=== PATIENT | female | born 1985 | race Two or more races ===

== ENCOUNTER 2025-04-21 08:19 | Outpatient (AMB) | payer OTHER, SELFPAY ==
--- OUTSIDE RECORDS SUMMARY | 2025-04-21 08:28 | XMS_ITS | Clinical Summary ---
Author Organization Patient Business [facility] Address [address] [place] [address] Care Team Providers Care Waitress Name Role Phone Ezekiel Mckoy MD Primary Care Provider [phone] Allergies No known active allergies Medications levonorgestreL (MIRENA) 21 mcg/24hr (up to 8 yrs) 52 mg IUD by Intrauterine route. Active FA/mv,Ca,iron,m in/lycopene/lut (MULTIVITAL ORAL) Take 1 tablet by mouth 1 (one) time each day. Active levothyroxine (SYNTHROID, LEVOTHROID) 25 mcg tablet TAKE 2 TABLETS (50 MCG TOTAL) BY MOUTH 1 (ONE) TIME EACH DAY BEFORE BREAKFAST. 180 tablet 1 5 Active PARoxetine (PAXIL) 30 mg tablet Take 1 tablet (30 mg total) by mouth 1 (one) time each day in the morning. 90 tablet 1 5 Active methocarbamoL (ROBAXIN) 500 mg tabletIndicatio ns:Lumbar pain,Spasm of muscle of lower back Take 1 tablet (500 mg total) by mouth 4 (four) times a day if needed for muscle spasms. 40 tablet 5 04/30/20 25 Active Active Problems Problem Noted Date Diagnosed Date Gilbert's syndrome 10/24/2024 Subclinical hypothyroidism 06/18/2023 Vitamin D deficiency 06/18/2023 Psychophysiological insomnia 06/18/2023 Primary osteoarthritis of right knee 06/18/2023 Anxiety 03/18/2023 Marihuana smoker 10/06/2017 Overview (04/28/2024): UDS + 10/02 Resolved Problems Problem Noted Date Diagnosed Date Resolved Date Cholelithiasis affecting pre gnancy, antepartum 02/21/2018 10/24/2024 Overview (04/28/2024): Diagnosed 12/21/2017 in [facility] ER with RUQ US. No cholecystitis or duct obstruction. Mildly elevated transaminases of AST 119, ALT 69 after presenting with N/V RUQ pain at 25 weeks. Mild range BP x 1 that day. Normal Cr, Plt 202, Trace protein on dip Shoulder pain 03/10/2012 10/24/2024 Back pain 03/10/2012 10/24/2024 Encounters Date Type Department Care Team Description 03/01/2025 1:45 PM EDT Office Visit Walk-In Clinic - [address] [id number] Kye Corado NP Lumbar pain (Primary Dx); Spasm of muscle of lower back 02/14/2025 9:00 AM EDT Office Visit Gastroenterology - [address] [facility] [address] [address] [place] [address] Mena Guevara NP Transaminitis (Primary Dx); Fatty liver; Morbid obesity with BMI of 40.0-44.9, adult (CMS/HCC V24, CMS/HCC V28); Need for hepatitis A and B vaccination 01/20/2025 8:53 AM EDT - 01/20/2025 11:59 PM EDT Hospital Encounter [facility] [address] [place] [address] Subclinical hypothyroidism Discharge Disposition: Home or Self Care from Last 3 Months Immunizations Immunization Administration Dates Next Due Influenza Quadravalent, MDCK , 0.5ml, preservative free (Flucelvax) 6mo and older 03/18/2023,03/04/2018 Tdap Tetanus diptheria acell ular pertussis (Boostrix; Adacel) 7yo and older 01/04/2018,03/10/2012 Surgical History Surgery Date Site/Laterality Comments VAGINOSCOPY 2014 PROCEDURE: [place] COLPOSCOPY CERVIX VAG LOOP ELTRD BX CERVIX; COMMENT: [facility] WISDOM TOOTH EXTRACTION PROCEDURE: HISTORICAL WISDOM TEETH EXTRACTION; COMMENT: All four removed Medical History Medical History Date Comments Morbid obesity with BMI of 4 0.0-44.9, adult (CMS/HCC V24, CMS/HCC V28) DX:Morbid obesity wit h BMI of 40.0-44.9, adult (HCC) Subclinical hypothyroidism 06/18/2023 DX:Giraldo bclinical hypothyroidism Vitamin D deficiency 06/18/2023 DX:Vitamin D deficiency Cholelithiasis affecting pre gnancy, antepartum 02/21/2018 DX:Cholelithiasis affecting , antepartum; COMMENT: Diagnosed 12/21/2017 in [facility] ER with RUQ US. No cholecystitis or duct obstruction. Mildly elevated transaminases of AST 119, ALT 69 after presenting with N/V RUQ pain at 25 weeks. Mild range BP x 1 that day. Normal Cr, Plt 202, Trace protein on dip Anxiety 03/18/2023 DX:Anxiety Psychophysiological insomnia 06/18/2023 DX: Psychophysiological insomnia Elevated liver enzymes DX:Elevat ed liver enzymes Hyperlipidemia DX:Hyperlipidemi a Family History Medical History Relation Name Comments Asthma Father Heart attack Maternal Grandfather Hypertension Maternal Grandmother Other: IBS Maternal Grandmother Other: cervical polyp Mother Other: old age Paternal Grandfather No Known Problems Paternal Grandmother No Known Problems Son Chuy Breast cancer Neg Hx Colon cancer Neg Hx Ovarian cancer Neg Hx Pancreatic cancer Neg Hx Prostate cancer Neg Hx Uterine cancer Neg Hx Relation Name Status Comments Father Alive Maternal Grandfather Maternal Grandmother Alive scolios is Mother Alive Paternal Grandfather Paternal Grandmother Son Chuy Alive Social History Tobacco Use Types Packs/Day Years Used Date Smoking Tobacco: Never Passive Smoke Exposure: Never Smokeless Tobacco: Never Alcohol Use Standard Drinks/Week Comments Yes 0 (1 standard drink = 0.6 oz pur e alcohol) Housing Instability Answer Date Recorde d Are you worried that in the next 2 months you may not have stable housing? No 03/01/2025 Food Access & Nutrition Answer Date Rec orded Do you have access to a vari ety of food including fruits and vegetables? Yes 03/01/2025 Access to Healthcare Answer Date Record ed Within the last 3 months, namita scott many times did you visit the emergency department for your medical care? 0 03/01/2025 Health Literacy Answer Date Recorded How often do you need to hav e someone help you when you read instructions, pamphlets, or other written material from your doctor or pharmacy? Never 03/01/2025 Caregiver: How often do you need to have someone help you when you read instructions, pamphlets, or other written material from your doctor or pharmacy? Not on file 03/01/2025 Financial Risk Answer Date Recorded How hard is it for you to pa y for the very basics like food, housing, medical care, and air conditioning / heating? Not very hard 03/01/2025 Transportation Answer Date Recorded Has the lack of transportati on kept you from meetings, work, or from getting things needed for daily living? No Has the lack of transportati on kept you from medical appointments or from getting medications? No 03/01/2025 Social Isolation Answer Date Recorded How often do you feel lonely or isolated from th ose around you? Rarely 03/01/2025 Food Risk Answer Date Recorded Within the past 12 months we worried whether our food would run out before we got money to buy more. Never true 03/01/2025 Within the past 12 months th e food we bought just didn't last and we didn't have money to get more. Never true 03/01/2025 Dependent Care Answer Date Recorded Do you need help finding or paying for care for your loved ones. For example, children's book author or elderly care for an older adult? No 03/01/2025 Education Answer Date Recorded Do you think completing more education or training, like finishing a GED, going to college, or learning a trade, would be helpful for you? Patient declined 03/01/2025 Employment and Income Answer Date Recor ded During the last four weeks, have you been actively looking for work? No 03/01/2025 Living Situation Answer Date Recorded What is your living situation? Unrecognized valu e 03/01/2025 Comments Unknown Sex and Gender Information Value Date Recorded Sex Assigned at Not on file Legal Sex Female 10:31 AM EDT Gender Identity Not on file Sexual Orientation Not on file Obstetrics History Last Filed Vital Signs Vital Sign Reading Time Taken Comments Blood Pressure 108/64 03/01/2025 1:57 PM EDT Pulse 80 03/01/2025 1:57 PM EDT Temperature 36.8 C (98.2 F) 03/01/2025 1:57 PM EDT Respiratory Rate - - Oxygen Saturation 98% 03/01/2025 1:57 PM EDT Inhaled Oxygen Concentration - - Weight 126 kg (277 lb) 02/14/2025 8:59 AM EDT Height 168.9 cm (5' 6.5 ) 02/14/2025 8:59 AM EDT Body Mass Index 44.04 02/14/2025 8:59 AM EDT Plan of Treatment Upcoming Encounters Date Type Department Care Team (Late st Contact Info) Description 07/05/2025 1:40 PM EST Office Visit Gastroenterology - [address] [facility] [address] [place] [phone] Mena Guevara, GRETA [address] [facility] [address] [place] [address] Health Maintenance Due Date Last Done Comments Hepatitis B Vaccines (1 of 3 - 19+ 3-dose series) 2005 HPV Vaccines (1 - 3-dose SCD M series) 2013 Depression Screening 06/08/2024 COVID-19 Vaccine ( - 2024-2 6 season) 2025 02/12/2021, 01/21/2021, 10/21/2020 Influenza Vaccine (#1) 2025 , 03/04/2018 Cervical Cancer Screening: HPV 11/12/2025 11/12/2020 Social Influencers of Health Screening 03/01/2026 03/01/2025 DTaP,Tdap,and Td Vaccines (3 - Td or Tdap) 01/05/2028 01/04/2018, 03/10/2012 Cholesterol Screening (Lipid Panel) 11/10/2029 11/10/2024, 12/17/2023, 12/17/2023 RSV Immunization Adult Patients (1 - 1-dose 75+ series) 2061 HIV Screening Completed 10/02/2017 Hepatitis C Screening Completed 11/10/2024 HIB Vaccines Aged Out No longer eligi ble based on patient's age to complete this topic Hepatitis A Vaccines Aged Out No long er eligible based on patient's age to complete this topic IPV Vaccines Aged Out No longer eligi ble based on patient's age to complete this topic MMR Vaccines Aged Out No longer eligi ble based on patient's age to complete this topic Meningococcal ACWY Vaccine Aged Out N o longer eligible based on patient's age to complete this topic Meningococcal B Vaccine Aged Out No l onger eligible based on patient's age to complete this topic Pneumococcal Vaccine: Pediatrics (0 to 5 Years) and At-Risk Patients (6 to 49 Years) Aged Out No longer eligible b ased on patient's age to complete this topic RSV Immunization Patients Under 20 months Aged Out No longer eligible b ased on patient's age to complete this topic Varicella Vaccines Aged Out No longer eligible based on patient's age to complete this topic Procedures Procedure Name Priority Date/Time Associated Diagnosis Comments US HEAD NECK SOFT TISSUE Routine 01/20/2025 9:27 AM EDT Subclinical hypothyroidism HEPATITIS C ANTIBODY Routine 11/10/2024 9:37 AM EDT Elevated liver enzymes LIPID PANEL WITH REFLEX TO DIRECT LDL Routine 11/10/2024 9:37 AM EDT Screening for metabolic disorder HPV Routine 11/12/2020 HIV SCREENING Routine 10/02/2017 from Last 3 Months or Most Recently Relevant to Health Maintenance Results * US Head Neck Soft Tissue (01/20/2025 9:27 AM EDT) Anatomical Region Laterality Modality Head and Neck Ultrasound 01/24/2025 10:0 3 AM EDT Impressions 01/24/2025 10:09 AM EDT Heterogeneous gland. There are solid nodules in each lobe with some bright reflectors likely calcifications. The largest measures 1.3 cm. Recommend repeat ultrasound in 6 months. TI-RADS Assessment (updated September 2016) Composition: cystic or spongiform: 0 pt mixed cystic and solid: 1 pt solid or almost completely solid: 2 pts Echogenicity: anechoic: 0 pt hyperechoic or isoechoic: 1 pt hypoechoic: 2 pts very hypoechoic: 3 pt Shape: wider than tall: 0 pt taller than wide: 3 pts Margin: smooth: 0 pt ill-defined: 0 pt lobulated/irregular: 2 pts extra-thyroidal extension: 3 pts Echogenic foci none or large comet tail artifact: 0 pt macro-calcification: 1 pt peripheral/rim ca++: 2 pts punctate echogenic foci: 3 pts TR1: 0 pts; benign; no follow-up TR2: 2 pts; not suspicious; no FNA TR3: 3 pts; mildly suspicious; < or = 1.5 cm f/u; > or = 2.5 cm FNA TR4: 4-6 pts; moderately suspicious; < or = 1.0 cm follow-up; 1.5 cm FNA TR5: 7 or > pts; highly suspicious; .5-.9 cm f/u; 1.0 cm or > FNA -------- FINAL REPORT -------- Dictated By: Esdras Lee Dictated Date: 01/24/2025 10:03 ET Assigned Physician: Esdras Lee Reviewed and Electronically Signed By: Esdras Lee Signed Date: 01/24/2025 10:09 ET Workstation ID: [id number] Transcribed By: Self Edit Transcribed Date: 01/24/2025 10:03 ET Narrative 01/24/2025 10:09 AM EDT HISTORY: Hypothyroidism. Evaluate for nodule TECHNIQUE: Grayscale assessment of the thyroid was performed with a high frequency linear transducer. COMPARISON: None FINDINGS: The right lobe of the thyroid measures: 5.6 x 1.9 x 2.0 cm Previous measurement: No previous available Right lobe contour: The right lobe contour is smooth. Right lobe echogenicity: Heterogeneous Right lobe vascularity: Top normal. The left lobe of the thyroid measures: 5.2 x 1.3 x 1.8 cm Previous measurement: No previous available Left lobe contour: The left lobe contour is smooth. Left lobe echogenicity: Heterogeneous Left lobe vascularity: Top normal. Isthmus measures (AP): 0.3 cm Previous measurement: No previous available Isthmus contour: The isthmic contour is smooth. Isthmus echogenicity: Heterogeneous Isthmus vascularity: Top normal. Masses: RIGHT LOBE There is a circumscribed heterogeneous solid nodule in the lower pole of the right lobe. There are a few scattered bright reflectors. No suspicious posterior features. No evidence of extrathyroidal extension. 01/20/25-1.3 x 1.0 x 1.1 cm TR 4 LEFT LOBE Mid left lobe There is a heterogeneous hypoechoic solid mass with scattered bright reflectors. There is poor evaluation of the anatomy deep to the right reflectors. No evidence of extrathyroidal extension. 01/20/25-1.0 x 0.9 x 1.0 cm TR 5 Mid left lobe There is a circumscribed 0.6 cm echogenic solid nodule with no calcification or extrathyroidal extension. No abnormal color signal TR 3 OTHER: Extrathyroidal extension: None Regional lymph nodes: No enlarged lymph nodes demonstrated Procedure Note Esdras Lee MD - 01/24/2025 HISTORY: Hypothyroidism. Evaluate for nodule TECHNIQUE: Grayscale assessment of the thyroid was performed with a highfrequency linear transducer. COMPARISON: None FINDINGS: The right lobe of the thyroid measures: 5.6 x 1.9 x 2.0 cm Previous measurement: No previous available Right lobe contour: The right lobe contour is smooth. Right lobe echogenicity: Heterogeneous Right lobe vascularity: Top normal. The left lobe of the thyroid measures: 5.2 x 1.3 x 1.8 cm Previous measurement: No previous available Left lobe contour: The left lobe contour is smooth. Left lobe echogenicity: Heterogeneous Left lobe vascularity: Top normal. Isthmus measures (AP): 0.3 cm Previous measurement: No previous available Isthmus contour: The isthmic contour is smooth. Isthmus echogenicity: Heterogeneous Isthmus vascularity: Top normal. Masses: RIGHT LOBE There is a circumscribed heterogeneous solid nodule in the lower pole ofthe right lobe. There are a few scattered bright reflectors. No suspiciousposterior features. No evidence of extrathyroidal extension. 01/20/25-1.3 x 1.0 x 1.1 cm TR 4 LEFT LOBE Mid left lobe There is a heterogeneous hypoechoic solid mass with scattered brightreflectors. There is poor evaluation of the anatomy deep to the rightreflectors. No evidence of extrathyroidal extension. 01/20/25-1.0 x 0.9 x 1.0 cm TR 5 Mid left lobe There is a circumscribed 0.6 cm echogenic solid nodule with nocalcification or extrathyroidal extension. No abnormal color signal TR 3 OTHER: Extrathyroidal extension: None Regional lymph nodes: No enlarged lymph nodes demonstrated IMPRESSION: Heterogeneous gland. There are solid nodules in each lobe with some bright reflectors likelycalcifications. The largest measures 1.3 cm. Recommend repeat ultrasound in 6 months. TI-RADS Assessment (updated September 2016) Composition: cystic or spongiform: 0 pt mixed cystic and solid: 1 pt solid or almost completely solid: 2 pts Echogenicity: anechoic: 0 pt hyperechoic or isoechoic: 1 pt hypoechoic: 2 pts very hypoechoic: 3 pt Shape: wider than tall: 0 pt taller than wide: 3 pts Margin: smooth: 0 pt ill-defined: 0 pt lobulated/irregular: 2 pts extra-thyroidal extension: 3 pts Echogenic foci none or large comet tail artifact: 0 pt macro-calcification: 1 pt peripheral/rim ca++: 2 pts punctate echogenic foci: 3 pts TR1: 0 pts; benign; no follow-up TR2: 2 pts; not suspicious; no FNA TR3: 3 pts; mildly suspicious; < or = 1.5 cm f/u; > or = 2.5 cm FNA TR4: 4-6 pts; moderately suspicious; < or = 1.0 cm follow-up; 1.5 cm FNA TR5: 7 or > pts; highly suspicious; .5-.9 cm f/u; 1.0 cm or > FNA -------- FINAL REPORT -------- Dictated By: Esdras Lee Dictated Date: 01/24/2025 10:03 ET Assigned Physician: Esdras Lee Reviewed and Electronically Signed By: Esdras Lee Signed Date: 01/24/2025 10:09 ET Workstation ID: [id number] Transcribed By: Self Edit Transcribed Date: 01/24/2025 10:03 ET us Viviana KAUR IMRichard US PROCEDURES Final Res ult * Hepatitis C antibody (11/10/2024 9:37 AM EDT) Hepatitis C Antibody Negative Negative LAB CHEMISTRY METHOD 11/10/2024 6:18 PM EDT [facility] Blood Venous blood specimen / Unknown Venipuncture / Unknown 11/10/2024 9:37 AM EDT 11/10/2024 9:37 AM EDT us Mallory Echevarria [facility] LAB BLOOD ORDERABLES Final R esult [facility] [address] [place] [address], [place] [phone] * (ABNORMAL) Lipid panel with reflex to direct LDL (11/10/2024 9:37 AM EDT) Cholesterol 195 0 - 200 mg/dL LAB CHEMISTRY METHOD 11/10/2024 4:39 PM EDT [facility] Triglycerides 266(H) 0 - 150 mg/dL LAB CHEMISTRY METHOD 11/10/2024 4:39 PM EDT [facility] HDL 37(L) >=40 mg/dL LAB CHEMISTRY METHOD 11/10/2024 4:39 PM EDT [facility] LDL Calculated 105(H) 0 - 100 mg/dL LAB CHEMISTRY METHOD 11/10/2024 4:39 PM EDT [facility] VLDL Cholesterol Brando 53.2 mg/dL LAB CHEMISTRY METHOD 11/10/2024 4:39 PM EDT [facility] Non HDL Chol. (LDL+VLDL) 158(H) <145 mg/dL LAB CHEMISTRY METHOD 11/10/2024 4:39 PM EDT [facility] Chol/HDL Ratio 5.3(H) 0.0 - 4.4 LAB CHEMISTRY METHOD 11/10/2024 4:39 PM [facility] Blood Venous blood specimen / Unknown Venipuncture / Unknown 11/10/2024 9:37 AM EDT 11/10/2024 9:37 AM EDT us Mallory Echevarria [facility] LAB BLOOD ORDERABLES Final R esult [facility] [address] [place] [address], * Cervical Cancer Screening: HPV (11/12/2020) Cervical Cancer Screening: HPV abstracted, negative Historical Provider HEALTH MAINTENANCE Final Result * HIV Screening (10/02/2017) HIV Screening abstracted Historical Provider HEALTH MAINTENANCE Final Result from Last 3 Months or Most Recently Relevant to Health Maintenance Insurance [facility] Care Teams Waitress Relationship Specialty Start Date End Date Ezekiel Mckoy MD [address] [place] [id number] PCP - General Internal Medicine 02/07/25
--- NOTE | 2025-04-21 09:16 | A.OFFVIS_ITS ---
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 BMI 43.5: Details: Start time: 9.04am, End time: 10.04am ?I spent 55 minutes speaking with the patient on the phone plus an additional 5 minutes reviewing and updating records for a total of 60 minutes HPI Comments Details: Previous weight loss efforts: Calorie counting, exercise Wakes up: 7am, Sleeps: 11pm Breakfast: 9am (eggs, beans) Lunch: 12-2pm (leftover dinner) Dinner: 5pm (protein, vegetables) Snacks: 2-3 snacks after dinner (Popsicle, popcorn, ice cream) Exercise: has walking pad (no calorie tracking or inclines) Beverages: Coffee: none, Tea: 2/wk (with creamer and sugar), Soda: Barqs Rup beer zero calories, Juice: 5 calorie flavored drinks, ETOH: none PFSH Medical History (Updated 04/21/25 @ 09:26 by Jose Farris MD) Steatosis, liver Hypothyroidism DJD (degenerative joint disease) Anxiety Depression Morbid obesity Hx LEEP (loop electrosurgical excision procedure), cervix, Surgical History (Updated 01/20/25 @ 13:10 by Madai Collins CMA) Hx of wisdom tooth extraction Family History (Updated 01/20/25 @ 13:11 by Madai Collins CMA) Mother No problems noted. Father No problems noted. Son No problems noted. Son Autism Son Autism Social History (Updated 01/20/25 @ 13:10 by Madai Collins CMA) Alcohol intake: former Patient Tobacco Use Status: Never used Tobacco Telehealth Telehealth Telehealth Platform: Telephone Location of provider rendering services: practice address Location of patient: address on file Patient Identification confirmed using: Name, : Yes Telehealth method: voice only Patient verbally consented to treatment: Yes Patient verbally consented to billing insurance company: Yes Patient informed of any privacy concerns related to visit: Yes Minutes spent on Phone/Video with Pt.: 60 Assessment & Plan Assessment & Plan (1) Morbid obesity: Code(s): E66.01 - Morbid (severe) obesity due to excess calories Category: Medical Plan: 1. Nutritional counseling. Start with one CELEBRATE REBUILD protein (buy online with the link I gave you) shake (ONE scoop in 8oz low fat unsweetened almond milk each) at 8am-10am, 1 protein bar (CELEBRATE protein bars, buy at [facility] [employer], buy online with the link I gave you) ) at 11am-1pm, another CELEBRATE REBUILD protein shake (ONE scoop in 8oz low fat unsweetened almond milk) at 2pm- 4pm, dinner at 5pm (10 forks of protein and 10 forks of salad/vegetables) AND another Celebrate protein bar at 7pm-9pm AND another HALF protein bar after dinner at 10pm-11pm. So you do 2 protein shakes, 2.5 protein bars and one meal per day. Meal to include lean meat (beef, fish, pork, turkey, chicken), or occitan yogurt, or egg whites, or beans with a salad with olive oil and fruits (berries, pears, apples, kiwi). Avoid salt, breads, potatoes, rice, pasta, desserts. 2. Each shake would be drunk slowly, like coffee in a period of 2 hours. 3. Cut each bar in 4 pieces and eat each piece in 30min ?to make each bar last 2 hours. 4. I emphasized the importance of measuring accurately the food portion and measure it when serving the food in plate 5. The meal portions include 10 full-size forks of meat and 10 full-size forks of salad. You always eat the meat portion but you can replace up to 5 forks for salad/vegetables with rice, potatoes or pasta, or a fruit ?if you like. The less you do it the better weight loss will be. 6. One full-size fork is what it can be scooped on the fork without falling aside and not what can be bit with the fork. Use regular forks like those you find in a typical restaurant. 7.? Please buy the body composition scale we discussed and send me weight measurements as soon as possible and then once a week. Always include your diet and exercise plan. 8. Start walking on the walking pad daily, tracking calories with a goal of 300 calories per day, daily. Goal is to burn 2000 calories per week on exercise. 9. The best choice would be to purchase a stationary bike at home that can track calories. If you get one, please 1start stationary bike at a resistance level of 4.0 Increase level by 1.0 every 3 min to a max level of 10.0. Stay at this level for 3 min and then return to level 4.0 and repeat same steps until 300 calories are burned. Goal is to burn 2000 calories per week on exercise . 10. Goal is to lose at least 1.5-2lbs per week 11. Goal to lose at least 10% of your weight, which is about 23lbs. Minimum weight goal: 250lbs 12. Please follow the diet plan exactly without any change. If you don't like something about the plan or you feel hungry you need to communicate with me so I can help you revise the plan. You should not change the plan yourself
[2025-04-21 09:26] VITALS: BMI 43.5
== END 2025-04-21 10:05 | disposition home or self-care (01) ==
LOC: HO.HBS 08:19
PROVIDERS: Visit Provider Surgery
DX: E66.01 Morbid (severe) obesity due to excess calories (principal); Z68.41 Body mass index [BMI] 40.0-44.9, adult
CPT/HCPCS: 98011